=== PATIENT | male | born 1950 | race Caucasian/White ===

== ENCOUNTER 2017-03-28 18:44 | Observation (INO) | payer OTHER ==
[~2017-03-28] VITALS: Ht 180.3 cm; Wt 96.6 kg
[~2017-03-28 18:44] MED LIST: NOHOMEMEDS
[2017-03-28 19:50] LABS: HEMATOCRIT 44.9 % (38.0-50.0); MCH 27.8 PG (29.0-34.0); MCHC 32.7 G/DL (30.0-36.0); MCV 84.9 FL (86-99); PLATELET COUNT 197 K/uL (156-360); RBC DIS.WIDTH-CV 14.1 % (11.8-14.6); RBC DIS.WIDTH-SD 43.6 % (39-53); RED BLOOD COUNT 5.29 M/uL (4.00-5.50); WHITE BLOOD COUNT 10.8 K/uL (4.1-10.2)
[2017-03-28 19:56] LABS: CHLORIDE 112 mEq/L (99-109); POTASSIUM 4.1 mEq/L (3.7-5.4); SODIUM 140 mEq/L (136-147)
[2017-03-28 19:58] LABS: GLUCOSE 112 mg/dL (70-99)
[2017-03-28 20:00] LABS: ANION GAP 7 MEQ/L (2-14)
[2017-03-28 20:02] LABS: GFR ESTIMATE (CALCULATED) > 59 mL/min/ (58.99-99999)
[2017-03-28 20:03] LABS: UREA NITROGEN (BUN) 14 mg/dL (9-23)
[2017-03-28 20:07] LABS: TROP-I INTERPRETATION NEGATIVE; TROPONIN-I 0.02 ng/mL (0.0-0.30)
[2017-03-28] MEDS ORDERED: AMLODIPINE BESYL5 MG PO (21:32)
[2017-03-28] MEDS ORDERED: CEPHALEXIN500 MG PO (21:34)
[2017-03-28] MEDS ORDERED: LO-DOSE ASPIRIN81 M2 PO (21:37)
[2017-03-28] MEDS ORDERED: ADVIL200 M3 PO (21:38)
[2017-03-29 00:35] VITALS: BP 154/67
[2017-03-29 04:00] LABS: HEMATOCRIT 43.3 % (38.0-50.0); MCH 27.7 PG (29.0-34.0); MCHC 32.3 G/DL (30.0-36.0); MCV 85.6 FL (86-99); MEAN PLAT.VOLUME 11.2 uM^3 (9.0-12.4); PLATELET COUNT 182 K/uL (156-360); RBC DIS.WIDTH-SD 43.5 % (39-53); RED BLOOD COUNT 5.06 M/uL (4.00-5.50); WHITE BLOOD COUNT 11.1 K/uL (4.1-10.2)
[2017-03-29 04:13] LABS: CHLORIDE 110 mEq/L (99-109); POTASSIUM 4.2 mEq/L (3.7-5.4); SODIUM 139 mEq/L (136-147)
[2017-03-29 04:15] LABS: GLUCOSE 92 mg/dL (70-99)
[2017-03-29 04:17] LABS: ANION GAP 5 MEQ/L (2-14)
[2017-03-29 04:19] LABS: GFR ESTIMATE (CALCULATED) > 59 mL/min/ (58.99-99999)
[2017-03-29 04:20] LABS: UREA NITROGEN (BUN) 14 mg/dL (9-23)
[2017-03-29 04:31] LABS: TROP-I INTERPRETATION NEGATIVE; TROPONIN-I 0.02 ng/mL (0.0-0.30)
[2017-03-29 05:00] VITALS: BP 122/73
[2017-03-29 07:46] LABS: METH RESISTANT S AUREUS PCR NEGATIVE (NEGATIVE)
[2017-03-29 07:53] LABS: PROBE CHECK PASS; SPECIMEN PROCESSING CONTROL PASS
[2017-03-29 10:23] LABS: TROP-I INTERPRETATION NEGATIVE; TROPONIN-I 0.02 ng/mL (0.0-0.30)
[2017-03-29] MEDS ORDERED: ULTRAM50 MG PO (11:18)
[2017-03-29] MEDS ORDERED: AMLODIPINE BESYL5 MG PO (11:18)
[2017-03-29] MEDS ORDERED: LOPRESSOR25 MG PO (11:18)
[2017-03-29 11:46] VITALS: BP 173/95
[2017-03-29 12:05] VITALS: BP 156/73
== END 2017-03-29 12:22 | disposition home or self-care (01) ==
LOC: EME 18:44 → EDOF 22:46 → ENRESERV 22:47 → EDOF 03-29 00:17 → 5WEST 03-29 00:19
PROVIDERS: Hospitalist
DX: I49.5 Sick sinus syndrome (principal); Z95.0 Presence of cardiac pacemaker; I11.9 Hypertensive heart disease without heart failure; E78.5 Hyperlipidemia, unspecified; Z86.14 Personal history of Methicillin resistant Staphylococcus aureus infection; F17.210 Nicotine dependence, cigarettes, uncomplicated; E66.9 Obesity, unspecified; I45.10 Unspecified right bundle-branch block; Z79.82 Long term (current) use of aspirin
CPT/HCPCS: 71020; 80048; 84484; 85027; 87641; 93005; 99281; 99285; G0378

== ENCOUNTER 2017-09-20 19:38 | Emergency (ER) | payer OTHER ==
[~2017-09-20] VITALS: Ht 180.3 cm; Wt 98.8 kg
[~2017-09-20 19:38] MED LIST changes: +ADVIL200 M3 PO; +AMLODIPINE BESYL5 MG PO; +CEPHALEXIN500 MG PO; +LO-DOSE ASPIRIN81 M2 PO; +LOPRESSOR25 MG PO; +ULTRAM50 MG PO
[2017-09-20 20:41] LABS: HEMATOCRIT 43.6 % (38.0-50.0); HEMOGLOBIN 14.4 G/DL (12.5-16.6); MCH 27.9 PG (29.0-34.0); MCV 84.5 FL (86-99); PLATELET COUNT 245 K/uL (156-360); RBC DIS.WIDTH-CV 13.8 % (11.8-14.6); RBC DIS.WIDTH-SD 42.9 % (39-53); RED BLOOD COUNT 5.16 M/uL (4.00-5.50); WHITE BLOOD COUNT 16.3 K/uL (4.1-10.2)
[2017-09-20 20:52] LABS: ALBUMIN 4.3 g/dL (3.2-4.8); CHLORIDE 106 mEq/L (99-109); POTASSIUM 4.6 mEq/L (3.7-5.4); SODIUM 139 mEq/L (136-147)
[2017-09-20 20:55] LABS: GLUCOSE 114 mg/dL (70-99); TOTAL PROTEIN 6.7 g/dL (6.4-8.3)
[2017-09-20 20:57] LABS: TOTAL BILIRUBIN 0.2 mg/dL (0.0-1.0)
[2017-09-20 20:58] LABS: ALKALINE PHOSPHATASE 79 IU/L (3-129); CREATININE 1.3 mg/dL (0.6-1.3); GFR ESTIMATE (CALCULATED) 59 mL/min/ (58.99-99999)
[2017-09-20 21:00] LABS: AST (GOT) 14 IU/L (2-34); UREA NITROGEN (BUN) 18 mg/dL (9-23)
[2017-09-20 21:01] LABS: ALT (GPT) 18 IU/L (3-49)
[2017-09-20] MEDS ORDERED: PREDNISONE50 MG PO (23:20)
[2017-09-20] MEDS ORDERED: KEFLEX500 MG PO (23:23)
[2017-09-20] MEDS ORDERED: PROVENTIL HFA6.7 GM IH (23:30)
[2017-09-20 23:53] VITALS: BP 166/73
== END 2017-09-21 00:24 | disposition home or self-care (01) ==
LOC: EME 19:38
PROVIDERS: Emergency Medicine
DX: J44.9 Chronic obstructive pulmonary disease, unspecified (principal); L03.317 Cellulitis of buttock; Z87.891 Personal history of nicotine dependence; K21.9 Gastro-esophageal reflux disease without esophagitis; Z86.14 Personal history of Methicillin resistant Staphylococcus aureus infection; Z79.82 Long term (current) use of aspirin
CPT/HCPCS: 71046; 71260; 74177; 80048; 80053; 85027; 93005; 94640; 99281; 99285; J7512

== ENCOUNTER 2017-10-26 16:41 | Emergency (ER) | payer OTHER ==
[~2017-10-26] VITALS: Ht 180.3 cm; Wt 101.3 kg
[~2017-10-26 16:41] MED LIST changes: +KEFLEX500 MG PO; +PREDNISONE50 MG PO; +PROVENTIL HFA6.7 GM IH
[2017-10-26] MEDS ORDERED: FLEXERIL10 MG PO (18:45)
[2017-10-26 18:55] VITALS: BP 157/85
== END 2017-10-26 18:55 | disposition home or self-care (01) ==
LOC: EME 16:41
DX: S93.402A Sprain of unspecified ligament of left ankle, initial encounter (principal); S90.112A Contusion of left great toe without damage to nail, initial encounter; R40.2412 Glasgow coma scale score 13-15, at arrival to emergency department; V49.40XA Driver injured in collision with unspecified motor vehicles in traffic accident, initial encounter; Y92.410 Unspecified street and highway as the place of occurrence of the external cause; M25.78 Osteophyte, vertebrae; M43.12 Spondylolisthesis, cervical region; I10 Essential (primary) hypertension; J44.9 Chronic obstructive pulmonary disease, unspecified; Z79.82 Long term (current) use of aspirin
CPT/HCPCS: 72040; 73610; 73630; 99281; 99283